=== PATIENT | female | born 1940 | race Caucasian/White ===

== ENCOUNTER 2021-01-10 21:52 | Observation (INO) | payer MEDICARE ==
[~2021-01-10] VITALS: Ht 157.5 cm; Wt 87.0 kg
[2021-01-10 22:11] LABS: BASOPHILS ABSOLUTE AUTO 0.11 K/mm3 (0.00-0.23); BASOPHILS PERCENT AUTO 1 % (0-2); EOSINOPHILS ABSOLUTE AUTO 0.28 K/mm3 (0.00-0.68); EOSINOPHILS PERCENT AUTO 2 % (0-6); Hematocrit 36.2 % (33.0-51.0); Hemoglobin 11.9 g/dL (11.5-16.0); IMMATURE GRAN ABSOLUTE AUTO 0.03 K/mm3 (0.00-0.10); IMMATURE GRAN PERCENT AUTO 0 % (0-1); LYMPHOCYTES ABSOLUTE AUTO 2.42 K/mm3 (0.84-5.20); LYMPHOCYTES PERCENT AUTO 21 % (21-46); MONOCYTES PERCENT AUTO 6 % (4-13); Mean Corpuscular HGB 29.2 pg (26.0-34.0); Mean Corpuscular HGB Conc 32.9 g/dL (31.5-36.5); Mean Corpuscular Volume 89 fL (80-100); Mean Platelet Volume 11.2 fL (9.1-12.4); NEUTROPHILS ABSOLUTE AUTO 7.95 K/mm3 (1.96-9.15); NEUTROPHILS PERCENT AUTO 69 % (41-73); Platelet Count 272 K/mm3 (150-400); RDW Standard Deviation 42.7 fL (35.1-46.3); Red Blood Cell Count 4.08 M/mm3 (3.80-5.20); White Blood Cell Count 11.49 K/mm3 (4.00-11.30)
[2021-01-10 22:22] LABS: Albumin, Blood 3.4 g/dL (3.4-5.0); Albumin/Globulin Ratio 0.8 (0.8-1.8); Bilirubin, Total 0.4 mg/dL (0.1-1.0); Bun/Creatinine Ratio 19.7 (12.0-20.0); Calcium, Blood 9.1 mg/dL (8.5-10.1); Creatinine, Blood 1.42 mg/dL (0.40-1.00); Potassium, Blood 4.7 mmol/L (3.5-5.5); Total Protein, Blood 7.4 g/dL (6.4-8.2)
[2021-01-10 23:56] LABS: Source, Urine Clean Catch
[2021-01-11 00:02] LABS: Appearance, Urine Hazy (Clear); Bilirubin, Urine Neg (Neg); Blood, Urine 2+ (Neg); Color, Urine Yellow (P-Yellow); Glucose Qualitative, Urine Neg (Neg); Ketones, Urine Neg (Neg); Leukocyte Esterase, Urine 2+ (Neg); Nitrite, Urine Neg (Neg); Protein, Urine 2+ (Neg); Specific Gravity, Urine 1.015 (1.003-1.022); Urobilinogen, Urine NORM (Normal); pH, Urine 6.5 (5.0-8.0)
[2021-01-11 00:09] LABS: Bacteria Many /hpf; Red Blood Cells, Urine 0-2 /hpf (0-2); Squamous Epithelial Cells Few /hpf (Few); White Blood Cells, Urine 50-100 /hpf (0-5)
[2021-01-11] MEDS ORDERED: HUMALOG100 UNIT/1 SC (01:34)
[2021-01-11] MEDS ORDERED: INSULANI SC (01:36)
[2021-01-11 05:23] LABS: BASOPHILS ABSOLUTE AUTO 0.08 K/mm3 (0.00-0.23); BASOPHILS PERCENT AUTO 1 % (0-2); EOSINOPHILS ABSOLUTE AUTO 0.28 K/mm3 (0.00-0.68); EOSINOPHILS PERCENT AUTO 3 % (0-6); Hematocrit 34.5 % (33.0-51.0); Hemoglobin 11.1 g/dL (11.5-16.0); IMMATURE GRAN ABSOLUTE AUTO 0.02 K/mm3 (0.00-0.10); IMMATURE GRAN PERCENT AUTO 0 % (0-1); LYMPHOCYTES ABSOLUTE AUTO 3.14 K/mm3 (0.84-5.20); LYMPHOCYTES PERCENT AUTO 33 % (21-46); MONOCYTES ABSOLUTE AUTO 0.71 K/mm3 (0.16-1.47); MONOCYTES PERCENT AUTO 8 % (4-13); Mean Corpuscular HGB 29.2 pg (26.0-34.0); Mean Corpuscular HGB Conc 32.2 g/dL (31.5-36.5); Mean Corpuscular Volume 91 fL (80-100); Mean Platelet Volume 11.2 fL (9.1-12.4); NEUTROPHILS ABSOLUTE AUTO 5.25 K/mm3 (1.96-9.15); NEUTROPHILS PERCENT AUTO 55 % (41-73); Platelet Count 229 K/mm3 (150-400); RDW Coefficient Variation 13.2 % (11.7-14.2); RDW Standard Deviation 43.7 fL (35.1-46.3); White Blood Cell Count 9.48 K/mm3 (4.00-11.30)
[2021-01-11 05:47] LABS: Albumin, Blood 3.1 g/dL (3.4-5.0); Albumin/Globulin Ratio 0.9 (0.8-1.8); Bilirubin, Total 0.3 mg/dL (0.1-1.0); Bun/Creatinine Ratio 17.9 (12.0-20.0); Calcium, Blood 8.6 mg/dL (8.5-10.1); Creatinine, Blood 1.4 mg/dL (0.40-1.00); Globulin, Blood 3.6 g/dL (2.2-4.0); Potassium, Blood 4.1 mmol/L (3.5-5.5); Total Protein, Blood 6.7 g/dL (6.4-8.2)
--- NOTE | 2021-01-11 06:05 | NUR ---
SHIFT SUMMARY PATIENT ARRIVED TO ROOM 334 VIA STRETCHER AT 0125. PATIENT IS ALERT AND ORIENTED. IS ABLE TO AMBULATE WITH MINIMAL ASSISTANCE WITH A FRONT WHEEL WALKER. PATIENT HAD NO COMPLAINTS OF PAIN OR SHORTNESS OF BREATH. IV PATENT AND INFUSING. BED IN LOWEST POSITION WITH WHEELS LOCKED. CALL LIGHT WITHIN REACH. REPORT GIVEN TO ONCOMING RN.
--- NOTE | 2021-01-11 18:30 | NUR ---
SHIFT SUMMARY: NO ACUTE EVENTS TODAY. C/O "SORENESS" IN RLQ ACROSS TO LOWER ABDOMEN BUT DECLINED OFFERED PAIN MEDICATIONS. BS ACTIVE X 3, HYPO IN RLQ, PASSING FLATUS. GETTING UP WITH SBA AND FWW TO BR, NO BM TODAY. PLEASANT AND COOPERATIVE.
--- NOTE | 2021-01-12 02:32 | NUR ---
SHIFT SUMMARY PATIENT ALERT AND ORIENTED. PATIENT REPORTS OCCASIONAL PAIN IN HER RLQ BUT SAYS ITS MANAGABLE AND DENIES PAIN MEDICATION. PATIENT IS SLEEPING WELL AND HAS BEEN HAVING MINIMAL NEEDS. NO ACUTE ISSUES NOTED OVERNIGHT. BLOOD SUGARS STABLE WHILE BEING NPO. IV PATENT AND FLUSHED. BED IN LOWEST POSITION WITH WHEELS LOCKED. CALL LIGHT WITHIN REACH.
--- NOTE | 2021-01-12 02:55 | NUR ---
ASSUMED CARE RECEIVED REPORT FROM MICHELA HENDRIX. ASSUMED CARE OF PT. PT ASLEEP, RESPS E/U. NO ACUTE DISTRESS. NO ACUTE CHANGES FROM INITIAL ASSESSMENT NOTED. NO ACUTE NEEDS ASSESSED AT THIS TIME. CALL LIGHT IN REACH, BED IN LOW POSITION, FWW IN REACH.
--- NOTE | 2021-01-12 07:00 | NUR ---
PT RESTING, IN NO ACUTE DISTRESS. VS REVIEWED,WNL. PT HAS BEEN SLEEPING SOUNDLY. NO ACUTE CHANGES TO REPORT. CALL LIGHT, POSSESSIONS IN REACH, BED IN LOW POSITION. REPORT GIVEN TO MICHELA MACEDO.
--- NOTE | 2021-01-12 17:54 | NUR ---
SHIFT SUMMARY PT ALERT AND INDEPENDENT IN THE ROOM. PT STILL HAVING SOME CRAMPS ON HER ABB OCCASIONAL DR AC- PT REFUSED PAIN MEDS DURING THIS SHIFT. PT HAD SEVERAL LOOSE STOOLS TODAY. PT WILL HAVE ABD ULTRASOUND TONIGHT, SO NPO UNTIL THEN. BED IS IN THE LOWEST POSITION AND CALL LIGHT WITHIN REACH
--- NOTE | 2021-01-13 04:42 | NUR ---
LOG DECK TENDER SUMMARY ADMITTED FOR PARTIAL SMALL BOWEL OBSTRUCTION. FULL CODE. PT IS HAVING BOWEL MOVEMENTS AND PASSING GAS. NO C/O PAIN THIS SHIFT. WILL HAVE ABDOMEN U/S IN AM. NONDISTRESSED. VSS. WILL CONTINUE TO MONITOR.
[2021-01-13 05:40] LABS: Albumin, Blood 3.1 g/dL (3.4-5.0); Albumin/Globulin Ratio 0.8 (0.8-1.8); Bilirubin, Total 0.3 mg/dL (0.1-1.0); Bun/Creatinine Ratio 14.2 (12.0-20.0); Calcium, Blood 8.9 mg/dL (8.5-10.1); Creatinine, Blood 1.41 mg/dL (0.40-1.00); Globulin, Blood 3.7 g/dL (2.2-4.0); Total Protein, Blood 6.8 g/dL (6.4-8.2)
--- NOTE | 2021-01-13 05:47 | NUR ---
I AGREE WITH DOCUMENTATION OF ARACELI MITCHELL STUDENT NURSE. ESPERANZA CONTRERAS RN
[2021-01-13 07:10] LABS: HBSAG SCREEN Negative (Negative); HEP B CORE AB, TOT Negative (Negative); HEP C VIRUS AB <0.1 (0.0-0.9)
[2021-01-13] MEDS ORDERED: NITROFURANTOIN PO (13:25)
[2021-01-13] MEDS ORDERED: LOPE2C PO (13:25)
[2021-01-13] MEDS ORDERED: PROBIOTIC1 EA13 PO (13:26)
--- NOTE | 2021-01-13 13:47 | NUR ---
PATIENT IS DISCHARGING AT 1348. THE PATIENT'S IS HERE TO DRIVE HER HOME.
== END 2021-01-13 13:50 | disposition home or self-care (01) ==
LOC: ER 21:52 → MEDS 21:53
PROVIDERS: Emergency Medicine; Internal Medicine; ADMIT Internal Medicine
DX: R10.31 Right lower quadrant pain (principal); N30.00 Acute cystitis without hematuria; B96.20 Unspecified Escherichia coli [E. coli] as the cause of diseases classified elsewhere; K81.0 Acute cholecystitis; K74.60 Unspecified cirrhosis of liver; E11.22 Type 2 diabetes mellitus with diabetic chronic kidney disease; N18.30 Chronic kidney disease, stage 3 unspecified; Z79.4 Long term (current) use of insulin
CPT/HCPCS: 36415; 74176; 76705; 80053; 81001; 82947; 83690; 83880; 85025; 86317; 86704; 86708; 86803; 87077; 87086; 87186; 87340; 93005; 93010; 96365; 96372; 96376; 99285-25; A9270; G0378; J0696; J1650; J7030